=== PATIENT | male | born 1940 | race Caucasian/White ===

== ENCOUNTER 2022-03-20 09:29 | Emergency (ER) | payer OTHER ==
[2022-03-20] MEDS ORDERED: DIAZEPAM 5 MG TABLET ONE (10:15)
[2022-03-20] MEDS ORDERED: KETOROLAC 30 MG/ML INJ ONE (10:16)
[2022-03-20] MEDS ORDERED: HYDROCODONE/APAP 5/325 MG TAB ONE (10:16)
[2022-03-20] MEDS ORDERED: dexAMETHasone 10 MG/ML VIAL ONE (10:16)
[2022-03-20 12:00] LABS: Urine Blood Negative (Negative); Urine Glucose Negative (Negative); Urine Protein Negative (Negative); Urine Specific Gravity 1.025 (1.005-1.030); Urine pH 5.5 (5.0-7.0)
[2022-03-20 12:22] VITALS: BP 127/74; TEMP 97.9; O2SAT 99
--- NOTE | 2022-03-22 09:25 | ER ---
Nurse's Notes [facility] Name: Derek Fregoso Age: 81 yrs Sex: Male : 1940 Arrival Date: 03/20/2022 Time: 09:31 Bed 12 Private MD: Diagnosis: Sciatica Presentation: 03/20 09:35 Chief complaint: Patient states: pt presented to ED reporting left hip pain x4 days pt gay denies any fall/ trauma. pt has hx of sciatica. Coronavirus screen: Vaccine status: Patient reports receiving the 2nd dose of the covid vaccine. Ebola Screen: Patient denies travel to an Ebola-affected area in the 21 days before illness onset. Initial Sepsis Screen: Does the patient meet any 2 criteria? No. Patient's initial sepsis screen is negative. Does the patient have a suspected source of infection? No. Patient's initial sepsis screen is negative. Risk Assessment: Do you want to hurt yourself or someone else? Patient reports no desire to harm self or others. Onset of symptoms was March 15, 2022. 09:35 Method Of Arrival: Ambulatory gay 09:35 Acuity: ANGELINA 4 gay Triage Assessment: 09:40 General: Appears in no apparent distress. Behavior is calm, cooperative. Pain: gay Complains of pain in right hip. Historical: - Allergies: 09:40 No Known Allergies; gay - Home Meds: 09:40 None [Active]; gay - Immunization history:: Adult Immunizations. - Social history:: Smoking status: Patient denies any tobacco usage or history of. Screenin:57 Abuse screen: Denies threats or abuse. Denies injuries from another. Nutritional gay screening: No deficits noted. Tuberculosis screening: No symptoms or risk factors identified. Fall Risk None identified. Assessment: 09:57 General: Appears in no apparent distress. Behavior is calm, cooperative. Pain: gay Complains of pain in right hip. Musculoskeletal: Range of motion: limited in right hip Reports pain in right hip Pain is 6 out of 10 on a pain scale. 11:50 Reassessment: Assisted patient at bedside with help from to keep him steady to provide urine specimen. Pt unable to provide specimen at this time. 11:58 Reassessment: Pt ultimately was able to void. UA obtained. Vital Signs: 09:35 BP 127 / 74; Pulse 68; Resp 18; Temp 97.9(T); Pulse Ox 99% ; Weight 72.57 kg; Height 5 gay ft. 8 in. (172.72 cm); 09:35 Body Mass Index 24.33 (72.57 kg, 172.72 cm) gay ED Course: 09:31 Patient arrived in ED. am2 09:40 Triage completed. gay 09:45 Suraj Burger PA is PHCP. [facility] 09:45 Julio Gaona MD is Attending Physician. [facility] 09:57 Patient has correct armband on for positive identification. Bed in low position. gay 09:57 No provider procedures requiring assistance completed. gay 09:59 Arm band placed on. gay 10:07 Assisted to bathroom. kc6 11:49 Sharon Tucker, DAVONTE is Primary Nurse. 11:58 Patient did not have IV access during this emergency room visit. ss Administered Medications: 10:12 Drug: Ketorolac 30 mg Route: IM; Site: left gluteus; gay 10:13 Follow up: Response: No adverse reaction gay 10:13 Drug: Valium (diazepam) 5 mg Route: PO; gay 10:13 Follow up: Response: No adverse reaction gay 10:13 Drug: HYDROcodone-acetaminophen 5 mg-325 mg 1 tabs Route: PO; gay 10:13 Follow up: Response: No adverse reaction gay 10:13 Drug: Decadron (dexamethasone) 10 mg Route: IM; Site: right gluteus; gay 10:13 Follow up: Response: No adverse reaction gay Medication: 09:57 VIS not applicable for this client. gay Outcome: 11:54 Discharge ordered by . [facility] 11:58 Discharged to home ambulatory. 11:58 Condition: good 11:58 Discharge instructions given to patient, family, Instructed on discharge instructions, follow up and referral plans. medication usage, Demonstrated understanding of instructions, follow-up care, medications, Prescriptions given X 1. 12:12 Patient left the ED. Signatures: Suraj Burger PA PA jmm Smirch, Shelby, DAVONTE RN Sophia Rodriguez am2 Brittnee-StagerDarlene RN RN gay Maria Eugenia Hennessy kc6
--- NOTE | 2022-03-22 09:25 | EDPHYS ---
Physician Documentation [facility] Name: Derek Fregoso Age: 81 yrs Sex: Male : 1940 Arrival Date: 03/20/2022 Time: 09:31 Bed 12 Private MD: ED Physician Julio Gaona HPI: 03/20 09:57 This 81 yrs old Male presents to ER via Ambulatory with complaints of Hip Pain, Leg jmm Pain. 09:57 The patient or guardian reports pain. Onset: The symptoms/episode began/occurred jmm gradually, 4 day(s) ago. Modifying factors: The symptoms are alleviated by nothing, the symptoms are aggravated by nothing. This is a 81-year-old male that presents emerged part with complaints of lower back pain which radiates down the left leg. Symptoms began about 4 days ago. This is occurred multiple times since a spinal injury approximately 4 years ago. Denies numbness. . Historical: - Allergies: 09:40 No Known Allergies; gay - Home Meds: 09:40 None [Active]; gay - Immunization history:: Adult Immunizations. - Social history:: Smoking status: Patient denies any tobacco usage or history of. ROS: 09:57 Constitutional: Negative for fever, chills, and weight loss, Cardiovascular: Negative jmm for chest pain, palpitations, and edema, Respiratory: Negative for shortness of breath, cough, wheezing, and pleuritic chest pain. 09:57 Back: Positive for pain with movement. 09:57 MS/extremity: Positive for pain. 09:57 All other systems are negative. Exam: 09:57 Constitutional: This is a well developed, well nourished patient who is awake, alert, jmm and in no acute distress. Head/Face: atraumatic. Eyes: EOMI, no conjunctival erythema appreciated ENT: Moist Mucus Membranes Neck: Trachea midline, Supple Chest/axilla: Normal chest wall appearance and motion. Cardiovascular: Regular rate and rhythm. No edema appreciated Respiratory: Normal respirations, no respiratory distress appreciated Abdomen/GI: Non distended Back: Normal ROM Skin: General appearance color normal 09:57 Musculoskeletal/extremity: ROM: intact in all extremities. 09:57 Skin: Appearance: Color: normal in color. 09:57 Neuro: Motor: is normal, Extensor hallullicis longus intact bilaterally. 09:57 Psych: Behavior/mood is pleasant, cooperative. Vital Signs: 09:35 BP 127 / 74; Pulse 68; Resp 18; Temp 97.9(T); Pulse Ox 99% ; Weight 72.57 kg; Height 5 gay ft. 8 in. (172.72 cm); 09:35 Body Mass Index 24.33 (72.57 kg, 172.72 cm) gay MDM: 09:57 Patient medically screened. [facility] 11:53 Data reviewed: vital signs, nurses notes. Counseling: I had a detailed discussion with [facility] the patient and/or guardian regarding: the historical points, exam findings, and any diagnostic results supporting the discharge/admit diagnosis, the need for outpatient follow up, to return to the emergency department if symptoms worsen or persist or if there are any questions or concerns that arise at home. Refusal of service: The patient/guardian displays adequate decision making capability and despite a detailed discussion of alternatives, benefits, risks, and consequences refuses: all lab tests. ED course: Pain is alleviated in the ED. I do not currently suspect cauda equina or spinal abscess.. 03/20 12:00 Order name: Urine Dipstick-Ancillary EDLA 03/20 12:12 Order name: Urine Dipstick-Ancillary (obtain specimen); Complete Time: 12:12 ss Administered Medications: 10:12 Drug: Ketorolac 30 mg Route: IM; Site: left gluteus; gay 10:13 Follow up: Response: No adverse reaction gay 10:13 Drug: Valium (diazepam) 5 mg Route: PO; gay 10:13 Follow up: Response: No adverse reaction gay 10:13 Drug: HYDROcodone-acetaminophen 5 mg-325 mg 1 tabs Route: PO; gay 10:13 Follow up: Response: No adverse reaction gay 10:13 Drug: Decadron (dexamethasone) 10 mg Route: IM; Site: right gluteus; gay 10:13 Follow up: Response: No adverse reaction gay Disposition: 16:15 Co-signature as Attending Physician, Julio Gaona MD. rn Disposition Summary: 03/20/22 11:54 Discharge Ordered Location: Home [facility] Condition: Stable [facility] Diagnosis - Sciatica [facility] Followup: [facility] - With: Private Physician - When: 1 - 2 days - Reason: Recheck today's complaints, Continuance of care, Re-evaluation by your physician Discharge Instructions: - Discharge Summary Sheet jesus - Sciatica [facility] Forms: - Medication Reconciliation Form [facility] - Thank You Letter ari - Antibiotic Education jesus - Prescription Opioid Use [facility] Prescriptions: - orphenadrine citrate 100 mg Oral Tablet Sustained Release - take 1 tablet by ORAL route 2 times per day As needed; 20 tablet; Refills: 0, jmm Product Selection Permitted Signatures: Suraj Burger PA PA jmm Nieto, Roman, MD MD rn Smirch, Shelby, RN RN ss Au-Darlene Galvin RN RN gay Corrections: (The following items were deleted from the chart) 11:50 09:58 Urine Dipstick-Ancillary ordered. [facility]
== END 2022-03-20 12:12 | disposition home or self-care (01) ==
LOC: ER 09:29
DX: M54.32 Sciatica, left side (principal)
CPT/HCPCS: 81003; J1100; 96372; 99283